=== PATIENT | male | born 1965 | race Caucasian/White ===

== ENCOUNTER 2018-03-19 06:28 | Day surgery (SDC) | END 2018-03-19 07:50 | disposition home or self-care (01) ==

== ENCOUNTER 2018-03-26 08:50 | Day surgery (SDC) | END 2018-03-26 13:35 | disposition home or self-care (01) ==

== ENCOUNTER 2018-05-07 16:27 | Emergency (ER) | END 2018-05-07 19:30 | disposition home or self-care (01) ==